=== PATIENT | male | born 1935 | race Caucasian/White ===

== ENCOUNTER → 2023-07-31 10:17 | Outpatient (REF) | payer MEDICARE, OTHER, SELFPAY | LOC: RAD 10:17 | PROVIDERS: ATTENDING PHYSICIAN Family Medicine | DX: R13.10 Dysphagia, unspecified (principal) | CPT/HCPCS: 74230; 92611 ==

== ENCOUNTER 2023-09-14 11:49 | Emergency (ER) | payer MEDICARE, OTHER, SELFPAY ==
[2023-09-14 12:05] VITALS: BP 119/68
[2023-09-14 12:24] LABS: % Basophils 0.2 % (0-2); % Immature Granulocytes 0.4 % (0-0.5); % Lymphocytes 15.5 % (20.5-51.1); % Monocytes 9.6 % (1.7-9.3); % Neutrophils 73.3 % (42.2-75.2); Absolute Eosinophils 0.1 10^3/uL (0-0.7); Absolute Immature Granulocytes 0.1 10^3/uL (0-0.05); Absolute Monocytes 1.2 10^3/uL (0.1-0.6); Absolute Neutrophils 9.2 10^3/uL (1.4-6.5); Hematocrit 41.4 % (39.0-52.0); Hemoglobin 13.6 g/dL (13.0-18.0); Mean Corp Hgb Conc. 32.9 g/dL (33.0-37.0); Mean Corpuscular Hgb 31.7 pg (27.0-31.0); Mean Corpuscular Volume 96.5 fL (80.0-94.0); Mean Platelet Volume 11.3 fL (7.4-10.4); Nucleated Red Blood Cells % 0 % (-); Platelet Count 202 10^3/uL (130-400); Red Blood Cell Count 4.29 10^6/uL (4.70-6.10); Red Cell Dist. Width 14.6 % (11.5-14.5); White Blood Cell Count 12.6 10^3/uL (4.8-10.8)
[2023-09-14 13:28] LABS: ALT (SGPT) 22 U/L (0-50); AST (SGOT) 36 U/L (17-59); Albumin 4.1 g/dl (3.5-5.0); Alkaline Phosphatase 85 U/L (38-126); Blood Urea Nitrogen 24 mg/dl (9-20); Calcium 9.5 mg/dl (8.4-10.2); Carbon Dioxide 22 mmol/L (22-30); Chloride 106 mmol/L (98-107); Glucose 119 mg/dl (70-99); Lipase 44 U/L (23-300); Potassium 4.1 mmol/L (3.5-5.1); Sodium 136 mmol/L (135-145); Total Protein 6.9 g/dl (6.3-8.2); eGFR > 60.00
--- NOTE | 2023-09-14 13:31 | ED.GENMED ---
History of Present Illness
General
Chief Complaint: Dehydration Symptoms
Source: patient and spouse
Exam Limitations: none
Time Seen by Provider: 09/14/23 13:21
Nursing documentation reviewed up to this point in time: agreed with
Travel History
Have you had any contact with someone who has COVID-19?: No
Do you have any symptoms of coronavirus? Fever > 100 degrees, chills, cough, shortness of breath, sore throat, loss of taste or smell, muscle aches, or headache?: No
History of Present Illness
History of Present Illness:
87-year-old male presents emergency department complaining of nausea vomiting and decreased appetite. He also reports loose stools. He denies any abdominal pain. His primary care doctor sent him to the emergency department concern for dehydration.
Past History
Past History
ED Past Medical History: GERD, HTN and Other (Kidney stones)
ED Past Surgical History: Orthopedic and Other (Hernia)
Social History
Tobacco: Non-smoker
Alcohol: Occasional
Drug: None
Personal:
Living: with family
Employment: Retired
Review of Systems
Review of Systems
Allergies reviewed?: Yes
All Other Systems: Not applicable
Constitutional: Reports no symptoms
EENT: Reports no symptoms
Respiratory: Reports no symptoms
Cardiac: Reports no symptoms
ABD/GI: Reports nausea, vomiting and diarrhea
: Reports no symptoms
Musculoskeletal: Reports no symptoms
Skin: Reports no symptoms
Neurological: Reports no symptoms
Endocrine: Reports no symptoms
Hematologic/Lymphatic: Reports no symptoms
Psychiatric: Reports no symptoms
Phy Exam
Physical Exam
Physical Exam:
Physical Exam
General: Afebrile
Neck: supple. no meningeal signs. normal posterior pharynx
Heart: s1/s2 regular rate and rhythm, no murmur. equal radial
pulses.
HEENT: Pupils equal round reactive to light, EOMI
Lungs: no acute respiratory distress. clear bilaterally
Abdomen: normal bowel sounds. not tender. no CVAT, midline and right lower quadrant abdominal scar
Neuro: alert and oriented. no focal neurological deficits cranial nerves II through XII intact
Skin: no rash
Psychiatric: well kept. interactive and cooperative
Extremities: no edema. no calf tenderness. negative homans. good distal pulses
Course
Orders/Labs/Results
Orders:
Orders
09/14/23 12:12
Complete Blood Count/With Diff Urgent
Comprehensive Metabolic Panel Urgent
Lipase Urgent
09/14/23 13:31
IV Insert/Care/Rem.- Treatment PRN
0.9% Sodium Chloride 1000 ml [Nss] 1,000 ml IV BOLUS
09/14/23 14:30
Urinalysis Reflex To Culture Stat
Date Specimen was Collected: 09/14/23
Time Specimen was Collected: 14:29
Urine Microscopic Reflex Cult Stat
Abnormal Lab Results
09/14/23 09/14/23
12:12 14:30
WBC 12.6 H 10^3/uL
(4.8-10.8)
RBC 4.29 L 10^6/uL
(4.70-6.10)
MCV 96.5 H fL
(80.0-94.0)
MCH 31.7 H pg
(27.0-31.0)
MCHC 32.9 L g/dL
(33.0-37.0)
RDW 14.6 H %
(11.5-14.5)
MPV 11.3 H fL
(7.4-10.4)
Abs Immat Gran (auto) 0.1 H 10^3/uL
(0-0.05)
Absolute Neuts (auto) 9.2 H 10^3/uL
(1.4-6.5)
Absolute Monos (auto) 1.2 H 10^3/uL
(0.1-0.6)
Lymphocytes % 15.5 L %
(20.5-51.1)
Monocytes % 9.6 H %
(1.7-9.3)
BUN 24 H mg/dl
(9-20)
Glucose 119 H mg/dl
(70-99)
Ur Occult Blood Reflex 2+ A
(Negative)
Urine RBC 7-10 A /HPF
(0-2)
Urine Bacteria (Reflex) Few A
(Negative)
09/14/23 12:12
09/14/23 12:12
Vital Signs
Initial and Last Documented VS:
Initial Vital Signs
Temp Pulse Resp BP Pulse Ox
98.1 F 71 18 119/68 97
09/14/23 12:05 09/14/23 12:05 09/14/23 12:05 09/14/23 12:05 09/14/23 12:05
Last Documented Vital Signs
Temp Pulse Resp BP Pulse Ox
98.1 F 57 18 119/71 99
09/14/23 12:05 09/14/23 14:28 09/14/23 14:28 09/14/23 14:28 09/14/23 14:28
MDM/Problems Addressed
Differential Diagnosis Includes:
Gastroenteritis, bowel obstruction
MDM/Problems Addressed:
87-year-old male with nausea vomiting diarrhea, benign abdomen. Feels improved after IV fluids.
Chronic conditions affecting care: HTN and Arrhythmia
Acute Exacerbation and/or Progression of Chronic Illness: HTN and Arrhythmia
*Pulse Oximetry
Patient hypoxic: no
*EKG
Interpreted by ED Provider?: NA
*Filteration Operator Interpretation
Rate: Filteration Operator- N/A
*Critical Care Note
Total Time (30-74mins, 75-104mins- exclusive of procedures): Not Applicable
Patient Management
Social determinants of health affecting care: Living situation
Escalation/DeEscalation of care consider admission/obs:
Admit not indicated
ED Attending Note
-
Portions of this chart may have been created with voice recognition software.� Occasional wrong word or��sound alike� substitutions may have occurred due to the inherent limitations of voice recognition software.
Discharge Plan
Departure
Patient Disposition: Home (Routine Discharge)
Date of Disposition: 09/14/23
Time of Disposition: 15:48
Patient with high blood pressure during this ER visit?: No
Condition: Good
Discharge Problem:
Nausea vomiting and diarrhea
Instructions: Diarrhea and Travelers' Diarrhea, Adult (DC), Nausea and Vomiting, Adult (DC)
Prescriptions:
No Action
Xarelto 20 MG tablet
20 mg PO DAILY
metoprolol succinate 25 mg tablet extended release 24 hr
25 mg PO DAILY
oseltamivir 30 mg Capsule
30 mg PO BID 3 Days Qty: 6 0RF
Referrals:
Heber Kowalski MD [Family Provider] - Call in 1-3 days for appt
Interventions
Interventions:
*Risk Screen - Suicide Last Done: 09/14/23 12:05
*General Assessment Last Done: 09/14/23 12:05
*Neglect/Abuse Screening Last Done: 09/14/23 12:05
ED- Fall Risk Assessment Last Done: 09/14/23 15:59
*ED COVID-19 Vaccine History Last Done: 09/14/23 12:05
*Nursing Disposition Last Done: 09/14/23 15:59
ED- Cardiac Assessment Last Done: 09/14/23 14:23
ED- Neurological Assessment Last Done: 09/14/23 14:23
ED- Pulmonary Assessment Last Done: 09/14/23 14:23
Discharge Date and Time
Discharge Date/Time: 09/14/23 16:00
[2023-09-14] MEDS: NSS 1000 IV (13:44)
[2023-09-14 13:45] VITALS: BP 121/69
[2023-09-14 14:28] VITALS: BP 119/71
[2023-09-14 14:39] LABS: Urine Albumin Trace (Neg - Trace); Urine Bilirubin Negative (Negative); Urine Character Clear (Clear); Urine Color Yellow; Urine Glucose Negative (Negative); Urine Ketone Negative (Negative); Urine Leukocyte Negative (Negative); Urine Nitrite Negative (Negative); Urine Occult Blood 2+ (Negative); Urine Urobilinogen Negative (Neg - 1+)
[2023-09-14 14:48] LABS: Urine Mucus Few
[2023-09-14 14:49] LABS: Urine Hyaline Cast 0-2 /LPF (0-2)
[2023-09-14 14:50] LABS: Urine Bacteria Few (Negative); Urine White Cell 0-2 /HPF (0-5)
== END 2023-09-14 16:00 | disposition home or self-care (01) ==
LOC: EMR 11:49
PROVIDERS: Emergency Medicine; EMERGENCY PHYSICIAN Emergency Medicine; FAMILY PHYSICIAN Family Medicine
DX: R11.2 Nausea with vomiting, unspecified (principal); R19.7 Diarrhea, unspecified
CPT/HCPCS: 99284; 96360; 80053; 81003; 81015; 83690; 85025

== ENCOUNTER 2023-12-09 17:22 | Inpatient (IN) | payer MEDICARE, OTHER, SELFPAY ==
[2023-12-09] VITALS (7 sets, daily range): BP systolic 105–131; BP diastolic 55–79; BMI 21.6
[2023-12-09 12:18] LABS: % Basophils 0.2 % (0-2); % Immature Granulocytes 0.5 % (0-0.5); % Lymphocytes 13.3 % (20.5-51.1); % Monocytes 9.2 % (1.7-9.3); % Neutrophils 76.8 % (42.2-75.2); Absolute Immature Granulocytes 0.1 10^3/uL (0-0.05); Absolute Lymphocytes 1.4 10^3/uL (1.2-3.4); Absolute Monocytes 0.9 10^3/uL (0.1-0.6); Absolute Neutrophils 7.8 10^3/uL (1.4-6.5); Hemoglobin 12.7 g/dL (13.0-18.0); Mean Corp Hgb Conc. 34.3 g/dL (33.0-37.0); Mean Corpuscular Hgb 32.1 pg (27.0-31.0); Mean Corpuscular Volume 93.4 fL (80.0-94.0); Mean Platelet Volume 11.6 fL (7.4-10.4); Nucleated Red Blood Cells % 0 % (-); Platelet Count 147 10^3/uL (130-400); Red Blood Cell Count 3.96 10^6/uL (4.70-6.10); Red Cell Dist. Width 14.5 % (11.5-14.5); White Blood Cell Count 10.2 10^3/uL (4.8-10.8)
[2023-12-09 12:30] LABS: ALT (SGPT) 26 U/L (0-50); AST (SGOT) 43 U/L (17-59); Albumin 3.5 g/dl (3.5-5.0); Alkaline Phosphatase 65 U/L (38-126); Blood Urea Nitrogen 25 mg/dl (9-20); Calcium 8.9 mg/dl (8.4-10.2); Carbon Dioxide 29 mmol/L (22-30); Chloride 102 mmol/L (98-107); Glucose 115 mg/dl (70-99); Sodium 138 mmol/L (135-145); Total Bilirubin 0.6 mg/dl (0.2-1.3); Total Protein 6.6 g/dl (6.3-8.2); eGFR > 60.00
[2023-12-09] MEDS: NSS 500 IV (13:18)
[2023-12-09 13:42] LABS: COVID-19 Antigen Positive (Negative)
--- NOTE | 2023-12-09 13:48 | ED.GENMED ---
History of Present Illness
General
Chief Complaint: Dehydration Symptoms
Source: patient and spouse
Exam Limitations: none
Time Seen by Provider: 12/09/23 12:43
Travel History
Have you had any contact with someone who has COVID-19?: Yes
Comment: covid +
Do you have any symptoms of coronavirus? Fever > 100 degrees, chills, cough, shortness of breath, sore throat, loss of taste or smell, muscle aches, or headache?: Yes
Symptoms:: sore throat, covid +
History of Present Illness
History of Present Illness:
88-year-old male started with a rash 3 to 4 days ago. Seen by his primary physician. The next day he started feeling worse they checked him again in his car found to have a positive COVID. Since then has had cough congestion weakness decreased
p.o. intake. Mostly complained of weakness and decreased p.o. intake.
Past History
Past History
ED Past Medical History: Arrthythmia, GERD, HTN and Other (Kidney stones)
ED Past Surgical History: Orthopedic and Other (Hernia)
Social History
Tobacco: Non-smoker
Alcohol: Occasional
Drug: None
Personal:
Living: with family
Employment: Retired
Review of Systems
Review of Systems
All Other Systems: Not applicable
Constitutional: Reports fever and fatigue
Respiratory: Reports cough
Phy Exam
Physical Exam
Physical Exam:
GENERAL: Alert and oriented in no apparent distress generally weak appearing
EYE: Orbits normal.
NECK: Supple
ENT: Pharynx without erythema
cardiac:rrr
Lung: Dry bibasilar rales. No respiratory distress. Occasional coarse cough
ABDOMEN: Soft, without focal tenderness or distention
NEUROLOGICAL: Alert and oriented , grossly non-focal
SKIN: Warm and dry, discrete erythematous maculopapular rash mostly on the chest abdomen and legs. Small area of the arm. No petechia or purpura
MUSCULOSKELETAL: No edema,no deformity.Good color
PSYCH: Normal and appropriate interaction.
Course
Orders/Labs/Results
Orders:
Orders
12/09/23 12:07
CBC/With Diff [Complete Blood Count/With Diff] Urgent
Comprehensive Metabolic Panel Urgent
12/09/23 12:51
CXR Port [CR Chest Portable - 1 View] Urgent
Comment:
Reason For Exam: cough covid
Reason Study Needs to be Portable: Other
12/09/23 12:52
0.9% Sodium Chloride 500 ml [Nss] 500 ml IV BOLUS
12/09/23 13:17
COVID-19 Antigen Urgent
Source: Nasal Swab
Abnormal Lab Results
12/09/23 12/09/23
12:07 13:17
RBC 3.96 L 10^6/uL
(4.70-6.10)
Hgb 12.7 L g/dL
(13.0-18.0)
Hct 37.0 L %
(39.0-52.0)
MCH 32.1 H pg
(27.0-31.0)
MPV 11.6 H fL
(7.4-10.4)
Abs Immat Gran (auto) 0.1 H 10^3/uL
(0-0.05)
Absolute Neuts (auto) 7.8 H 10^3/uL
(1.4-6.5)
Absolute Monos (auto) 0.9 H 10^3/uL
(0.1-0.6)
Neutrophils % 76.8 H %
(42.2-75.2)
Lymphocytes % 13.3 L %
(20.5-51.1)
BUN 25 H mg/dl
(9-20)
Glucose 115 H mg/dl
(70-99)
SARS-CoV-2 Antigen Positive A
(Negative)
12/09/23 12:07
12/09/23 12:07
Vital Signs
Initial and Last Documented VS:
Initial Vital Signs
Temp Pulse Resp BP Pulse Ox
98.3 F 69 16 105/55 95
12/09/23 11:56 12/09/23 11:56 12/09/23 11:56 12/09/23 11:56 12/09/23 11:56
Last Documented Vital Signs
Temp Pulse Resp BP Pulse Ox
98.3 F 62 16 131/75 95
12/09/23 11:56 12/09/23 14:02 12/09/23 14:02 12/09/23 15:15 12/09/23 14:02
MDM/Problems Addressed
Differential Diagnosis Includes:
General weakness fatigue. Likely all related to COVID. Unsure how the rash relates to this. Highly doubt pulmonary emboli. Patient is anticoagulated. Workup in progress
*Radiology
Radiology exam reviewed: radiology read reviewed (Bibasilar infiltrate)
*Pulse Oximetry
Patient hypoxic: no
*Critical Care Note
Total Time (30-74mins, 75-104mins- exclusive of procedures): Not Applicable
Data Reviewed
Review of Other/Old Records Reveals: Labs, Records, Testing and Discharge Summary
ED Attending Note
-
Portions of this chart may have been created with voice recognition software.� Occasional wrong word or��sound alike� substitutions may have occurred due to the inherent limitations of voice recognition software.
Discharge Plan
Departure
Patient Disposition: Admit
Date of Disposition: 12/09/23
Time of Disposition: 14:48
Presentation/result/management discussed w/ accepting MD/DO: Hospitalist
Discharge Problem:
Weakness/dehydration, COVID, Bibasilar infiltrate
Prescriptions:
No Action
Xarelto 20 MG tablet
20 mg PO DAILY
metoprolol succinate 25 mg tablet extended release 24 hr
25 mg PO DAILY
acetaminophen [Tylenol] 325 mg Tablet
650 mg PO BIDPRN PRN (Reason: mild pain)
trazodone 50 mg Tablet
50 mg PO HS PRN (Reason: sleep)
ascorbic acid (vitamin C) [Vitamin C] 500 mg Tablet
500 mg PO DAILY
Patient Comments:
12/09/2023, [facility].
Lagevrio (EUA) 200 mg capsule
800 mg PO Q12H
Patient Comments:
12/09/2023, filled on 12/08/2023 and instructed to take 4 capsules Q12H for 5 days.
cholecalciferol (vitamin D3)
1 tab PO DAILY
Patient Comments:
12/09/2023, [facility]; spouse believes that pt. is taking '200 mg' but is unsure of the dose for certain.
cyanocobalamin (vitamin B-12)
1 tab PO DAILY
Patient Comments:
12/09/2023, [facility].
zinc
1 tab PO DAILY
Patient Comments:
12/09/2023, [facility].
Referrals:
Heber Kowalski MD [Family Provider] -
Interventions
Interventions:
*Risk Screen - Suicide Last Done: 12/09/23 11:56
*General Assessment Last Done: 12/09/23 11:56
*Neglect/Abuse Screening Last Done: 12/09/23 11:56
ED- Fall Risk Assessment Last Done: 12/09/23 12:20
*ED COVID-19 Vaccine History Last Done: 12/09/23 12:22
ED- Cardiac Assessment Last Done: 12/09/23 12:20
ED- Neurological Assessment Last Done: 12/09/23 12:20
ED- Pulmonary Assessment Last Done: 12/09/23 12:20
Discharge Date and Time
Print Language: BELGIAN
--- NOTE | 2023-12-09 16:33 | HPS.HSE ---
Family Physician
-
Family Physician: Heber Kowalski
Chief Complaint
-
Sore throat and fatigue
History of Present Illness
88-year-old man had a rash 4 days ago. The next day he started feeling worse, and he was found to be positive COVID. Since then, he has had cough, congestion, weakness, decreased p.o. intake. He is very confused and cannot contribute to his
history. His initially asked for ivermectin and hydroxychloroquine. She was very adamant against antiviral medication such as rimdesivir. Her daughter (on speaker phone) advised her mother to accept appropriate therapy. He had been started
on molnupiravir as an outpatient. Later, after I left the room, the told the nurse she only wanted him to receive fluids and steroids. I came back to the room and explained that if the patient's condition became worse, an antiviral such as
rimdesivir would be useful. then re-agreed to allow him to receive whatever appropriate therapy we recommend. Throughout all this patient was confused and not able to follow the conversation.
Medical History
Past Medical History
Past Medical History: Reports Other
Additional Past Medical History:
Arrthythmia,
GERD,
essential HTN
Kidney stones
Hernia
vascular dementia
Metabolic encephalopathy
COPD
Influenza A
Past Surgical History: Reports Other
Additional Past Surgical History:
See above
Social History
Unable to obtain full social history at this time due to: Dementia
Family History
Family History: Not pertinent
Allergies / Home Medications
Allergies reflects when Allergies were last updated in [facility].
Home Medications with original date entered in [facility]
Allergy/Medication List:
Allergies
Allergy/AdvReac Type Severity Reaction Status Date / Time
lisinopril Allergy Rash Verified 09/14/23 14:23
omeprazole Allergy Rash Verified 09/14/23 14:23
Home Medications
rivaroxaban 20 mg tablet (Xarelto) 20 mg PO DAILY atrial fibrillation 12/24/20
metoprolol succinate 25 mg tablet,extended release 24 hr 25 mg PO DAILY Blood Pressure 05/29/23
acetaminophen 325 mg tablet (Tylenol) 650 mg PO BIDPRN PRN mild pain 12/09/23
ascorbic acid (vitamin C) 500 mg tablet (Vitamin C) 500 mg PO DAILY 12/09/23
cholecalciferol (vitamin D3) 1 tab PO DAILY 12/09/23
cyanocobalamin (vitamin B-12) 1 tab PO DAILY 12/09/23
molnupiravir 200 mg capsule (EUA) (Lagevrio) 800 mg PO Q12H 12/09/23
trazodone 50 mg tablet 50 mg PO HS PRN sleep 12/09/23
zinc 1 tab PO DAILY 12/09/23
Review of Systems
-
Unable to obtain full review of systems at this time due to: Dementia
Physical Exam
Vital Signs
Vital Signs
Temp Pulse Resp BP Pulse Ox
98.3 F 62 16 131/75 95
12/09/23 11:56 12/09/23 14:02 12/09/23 14:02 12/09/23 15:15 12/09/23 14:02
Physical Exam
General: Well Developed, Well Nourished and No Apparent Distress
HEENT: No Ptosis, Nose Appears Normal and Ears Appear Normal
Respiratory: Clear and Decreased Breath Sounds
Cardiac: S1/S2 and Regular Rhythm
GI: Soft, Non Tender and Non Distended
Musculoskeletal: No Clubbing, No Cyanosis and No Edema
Skin: Warm and Dry
Neuro: Awake and Alert; No Oriented or AO x 3
Psych: Calm and Confused
Laboratory Results
-
12/09/23 12:07
12/09/23 12:07
Laboratory Results
Total Bilirubin 0.6 mg/dl (0.2-1.3) 12/09/23 12:07
AST 43 U/L (17-59) 12/09/23 12:07
ALT 26 U/L (0-50) 12/09/23 12:07
Alkaline Phosphatase 65 U/L (38-126) 12/09/23 12:07
Data Reviewed
-
Lab Data: Labs Reviewed by me
Impression/Plan
-
IMPRESSION:
88 man with bilateral covid positive pneumonia, and dehydration.
CXR shows:
Minor bibasilar infiltrates.
No focal dense consolidation.
The mid to upper lung zones are clear.
Mild cardiomegaly without vascular congestion or congestive heart failure.
No pneumothorax or pleural effusion.
O2 Sats 95%
BP 131/75
Pulse 62
BUN/Creat 25/1.0
PLAN:
1. Covid pos, bilateral PNA, 4 days of symptoms
At time of admit, will start
Steroids
IV fluids
Will continue meds prescribed by PCP that he is already taking
Pulmonary consult to eval and recommend further therapy as needed
2. Dehydration, BUN/Creat >20
IV fluids
Recheck in am
Code status - Patient does not have capacity to make this decision
I am not sure has such capacity
Will order full code for now, will attempt to reach daughter for help with this question.
Xarelto for DVTp
[2023-12-09 19:05] LABS: D-Dimer 0.44 ug/mlFEU (0.00-0.50)
[2023-12-09] MEDS: NSS 1000 IV (19:30)
[2023-12-09] MEDS: DECADRON 6 MG IV (19:31)
[2023-12-09] MEDS: MUCINEX 600 MG PO (19:31)
[2023-12-09 19:33] LABS: Procalcitonin 1.71 ng/ml (0.0-0.25)
[2023-12-09] MEDS: MOLNUPIRAVIR (EUA) 800 MG PO (20:24)
[2023-12-09] MEDS: DESYREL 50 MG PO (22:03)
[2023-12-10] MEDS: NSS 1000 IV ×2 (00:22→05:19)
[2023-12-10 06:52] LABS: % Immature Granulocytes 0.5 % (0-0.5); % Lymphocytes 10.8 % (20.5-51.1); % Monocytes 2.2 % (1.7-9.3); % Neutrophils 86.5 % (42.2-75.2); Absolute Lymphocytes 0.7 10^3/uL (1.2-3.4); Absolute Monocytes 0.1 10^3/uL (0.1-0.6); Absolute Neutrophils 5.2 10^3/uL (1.4-6.5); Hematocrit 36.3 % (39.0-52.0); Hemoglobin 12.2 g/dL (13.0-18.0); Mean Corp Hgb Conc. 33.6 g/dL (33.0-37.0); Mean Corpuscular Hgb 31.8 pg (27.0-31.0); Mean Corpuscular Volume 94.5 fL (80.0-94.0); Mean Platelet Volume 12.1 fL (7.4-10.4); Nucleated Red Blood Cells % 0 % (-); Platelet Count 123 10^3/uL (130-400); Red Blood Cell Count 3.84 10^6/uL (4.70-6.10); Red Cell Dist. Width 14.5 % (11.5-14.5)
[2023-12-10 07:30] LABS: Blood Urea Nitrogen 25 mg/dl (9-20); Calcium 8.6 mg/dl (8.4-10.2); Carbon Dioxide 21 mmol/L (22-30); Chloride 109 mmol/L (98-107); Estimated Creatinine Clearance 77 ml/min; Glucose 120 mg/dl (70-99); Potassium 4.5 mmol/L (3.5-5.1); Sodium 140 mmol/L (135-145); eGFR > 60.00
[2023-12-10 07:50] VITALS: BP 117/74
[2023-12-10] MEDS: MOLNUPIRAVIR (EUA) 800 MG PO ×2 (08:26→19:54)
[2023-12-10] MEDS: ZINC SULFATE 220 MG PO (08:26)
[2023-12-10] MEDS: TOPROL XL 25 MG PO (08:26)
[2023-12-10] MEDS: VITAMIN B-12 100 MCG PO (08:26)
[2023-12-10] MEDS: MUCINEX 600 MG PO ×2 (08:26→19:54)
[2023-12-10] MEDS: XARELTO 20 MG PO (08:27)
[2023-12-10] MEDS: VITAMIN D3 (cholecalciferol) 50 MCG PO (08:27)
[2023-12-10] MEDS: DECADRON 6 MG IV (08:27)
[2023-12-10] MEDS: VITAMIN C 500 MG PO (08:27)
[2023-12-10] MEDS: NSS IV (10:09)
--- NOTE | 2023-12-10 11:37 | CM ---
Reviewed the chart notes and spoke with the patient's spouse via telephone due to the patient's Covid + status. The patient resides with his spouse in a multi-level home with four steps to enter. The patient has had [facility] in the past, but no SNF.
The patient's discharge plans will depend on the patient's progress. PT/OT evaluations pending. CM continues to be available to patient/family and is monitoring medical plan for needs at discharge.
Plan: Discharge plans will depend on the patient's progress.
--- NOTE | 2023-12-10 12:16 | W.PN.HOSP.TC ---
Today's Communication/Plan
-
stop Decadron
PT and ST eval
possible d/c in 24 hrs
Assessment / Plan
Assessment / Plan
1.COVID 19 Viral Pneumonia
-Patient brought in for cough/generalized weakness
-Not hypoxic on evaluation, continue monitor
-Chest x-ray showing minimal bilateral lower lobe infiltrate
-Patient already was prescribed Lagevrio by PCP, finish 5 days course
-Dexamethasone started but no true indication, discontinue.
-PT evaluation
2. Dysphagia
-ST evaluation
-Has h/o of polio as a kid, suspected some worsening with COVID related pharyngitis/swelling
-Discussed with daughter and wondering if can give some meds as liquid, will await ST eval for further understanding of severity of symptoms
3. Permanent A-fib
-HR controlled.
-Maintained on Xarelto
4. Alzheimer's dementia
-Patient symptoms have been manageable with nighttime trazodone per outpatient visit records
-patient pleasantly disoriented in morning today. no reported behavioral problems
Hyperlipidemia
Hypertension
History of alcohol use disorder
History of obstructive uropathy/hydronephrosis
History of polio infection at age 11
DVT PPX - xarelto
Full code
Care plan discussed with patient daughter Teresa who is medical power of agency sales representative and not mother.
Teresa was concerned about patient not being on remdesivir as was informed by admitting physician that patient is in life-threatening COVID and will require remdesivir course. I have reassured Teresa that patient currently does not show any sign of
severe COVID and there is no indication for remdesivir at this stage as patient not hypoxic. Plan is to continue molnupiravir and monitor patient for any further worsening.
Daughter also questioning if needs repeat chest x-ray and clarified that likely will not show changes in x-ray within 48 hours. If patient clinical condition deteriorates with worsening hypoxia/dyspnea can do repeat xray.
Anticipated Discharge: Within 24 hours
Subjective/Interval History
-
Date of Service: December 10, 2023
Resting comfortably in bed
Have some cough with thick secretion
Afebrile overnight
Not hypoxic
Objective Data
-
Labs:
Laboratory Results
12/10/23
05:52
WBC 6.0
Hgb 12.2 L
Hct 36.3 L
Plt Count 123 L
Sodium 140
Potassium 4.5
Chloride 109 H
Carbon Dioxide 21 L
BUN 25 H
Creatinine 0.7
Glucose 120 H
Calcium 8.6
Vital Signs:
Vital Signs
Temp Pulse Resp BP Pulse Ox
97.1 F 60 20 117/74 97
12/10/23 07:50 12/10/23 08:26 12/10/23 07:50 12/10/23 08:26 12/10/23 07:50
I&O
12/09/23 12/10/23 12/11/23
06:59 06:59 06:59
Intake Total 480 / 480 880 / 880
Balance 480 / 480 880 / 880
Review of Systems
-
Respiratory: Reports Cough; Denies Trouble Breathing
Cardiac: Reports No Symptoms
Abdomen/GI: Reports No Symptoms
Physical Exam
-
General: Comfortable
HEENT: Negative Oxygen
Respiratory: Rhonchi
Cardiac: Regular Rhythm and S1/S2; Negative Murmur or Rub
GI: Soft, Nontender and Nondistended
Musculoskeletal: No Edema
Neuro: Awake, Alert, No Motor Deficits and Nonfocal/Grossly Intact
Psych: Calm
--- NOTE | 2023-12-10 13:33 | CON.PUL ---
Consultation
Consultation Request
Date/Time Consultation Requested: 12/10/2023
Date/Time Consultation Performed: 12/10/2023
Requesting Provider: Dr. Camargo
Performing Provider: Dr. Lino Connor
Reason for Consultation: Pneumonia-SARS cov2
Medical History
-
History of Present Illness:
88-year-old man who has past medical history significant for hypertension, vascular dementia, COPD, influenza A reports a rash prior to coming to the hospital. Patient did not feel well and he was discovered to have COVID testing positive.
Symptoms started about 4 days prior to admission. Now with cough, congestion, weakness, decreased oral intake. He has dementia and unable to provide history.
Records reviewed.
Patient is confused. declined any antivirals or remdesivir.
was asking for hydroxychloroquine or ivermectin only.
Patient was started on Paxlovid in the outpatient setting.
Past Medical History
Past Medical History: Other (See assessment and plan section)
Social History
Tobacco: Non-smoker
Alcohol: None
Family History
Family History: Unable to Obtain (Dementia)
Allergies / Home Medications
Allergies
Allergy/AdvReac Type Severity Reaction Status Date / Time
lisinopril Allergy Rash Verified 09/14/23 14:23
omeprazole Allergy Rash Verified 09/14/23 14:23
Home Medications
�Medication �Instructions �Recorded �Confirmed �Last Taken �Type
rivaroxaban 20 mg tablet (Xarelto) 20 mg PO DAILY Blood Clot 12/24/20 12/09/23 12/08/23 History
Prevention/Tx
metoprolol succinate 25 mg 25 mg PO DAILY Blood Pressure 05/29/23 12/09/23 12/08/23 History
tablet,extended release 24 hr
acetaminophen 325 mg tablet 650 mg PO BIDPRN PRN mild pain 12/09/23 12/09/23 12/09/23 History
(Tylenol)
ascorbic acid (vitamin C) 500 mg 500 mg PO DAILY Supplement 12/09/23 12/09/23 3 Days Ago History
tablet (Vitamin C) ~12/06/23
cholecalciferol (vitamin D3) 1 tab PO DAILY Supplement 12/09/23 12/09/23 3 Days Ago History
~12/06/23
cyanocobalamin (vitamin B-12) 1 tab PO DAILY Supplement 12/09/23 12/09/23 3 Days Ago History
~12/06/23
molnupiravir 200 mg capsule (EUA) 800 mg PO Q12H COVID 12/09/23 12/09/23 12/09/23 History
(Lagevrio)
trazodone 50 mg tablet 50 mg PO HS PRN sleep 12/09/23 12/09/23 1 Week Ago History
~12/02/23
zinc 1 tab PO DAILY Supplement 12/09/23 12/09/23 3 Days Ago History
~12/06/23
Review of Systems
-
Unable to Obtain full review of systems at this time due to: Dementia
Vitals / Labs / Diagnostic Testing
Vital Signs
Temp Pulse Resp BP Pulse Ox
97.1 F 60 20 117/74 97
12/10/23 07:50 12/10/23 08:26 12/10/23 07:50 12/10/23 08:26 12/10/23 07:50
Lab Data
12/10/23 05:52
12/10/23 05:52
Diagnostic Testing:
Physical Exam
-
HEENT: Normocephalic
Cardiovascular: S1/S2 and Regular Rhythm
Respiratory: Rales
GI: Soft and Non Distended
Neurology: Awake and Other (Confused, unable to provide history. Baseline dementia)
Skin: Warm
General: Comfortable
Assessment
-
Bilateral pneumonia: Chest x-ray with a small bibasilar infiltrate
SARS Cov 2
Symptoms onset 4 days prior admission
Started on Paxlovid 1 days prior admission
Conditions present prior admission:
Advanced dementia
GERD
Hypertension
Kidney stone
COPD?
Influenza A
On chronic anticoagulant
Assessment and plan:
Patient currently on room air-Main symptoms are cough and generalized weakness.
Initially received steroids-given lack of hypoxemia or bronchospasm not indicated. May increase risk of delirium in this patient-agree with discontinuation.
Continue Paxlovid 5 days, unclear how many days he received prior admission.
declined any other antivirals on admission. Supportive care only.
No indication for antibiotics as there is no signs for superinfection.
-
Continue symptomatic management
Antitussives
Mucolytic's
IV hydration
Albuterol MDI-likely patient will be able to provide adequate maneuver.
DVT prophylaxis-patient on anticoagulation already.
-
Isolation per protocol. Patient is at least day 5 of infection.
-
Aspiration precaution
Swallowing evaluation
-
Pulmonary will continue to follow briefly.
[2023-12-10 15:25] VITALS: BP 128/83; BP 137/83; PULSE 58; O2SAT 98
[2023-12-10 15:32] VITALS: BP 128/83; BP 137/83; PULSE 65; O2SAT 98
--- NOTE | 2023-12-10 15:37 | PTCARENOTE ---
pt continues on covid precautions, medsitter in place due to confusion and hx of dementia, daughter came to visit, speech eval on going.
[2023-12-10 15:45] VITALS: BP 115/65
--- NOTE | 2023-12-10 17:18 | PTOTSP ---
SPEECH THERAPY SWALLOW EVALUATION:
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 Patient has had 3 prior Outpatient VSEs, most recently 08/04/23. Patient now
with minor bibasilar infiltrates per CXR. WBC WNL. Patient reporting his swallow feels at baseline level of functioning, though unclear. Given stable respiratory status at this time (breathing comfortably on room air), patient appears safe to
continue previous diet recommendations from VSE results in 07/2023: Recommending IDDSI Level 6 Soft and Bite Size and thin liquids. Medications whole in puree. Aspiration precautions including: Upright positioning; Small single sips; Small bites; NO
STRAW; Oral care 3x/day; Multiple swallows; Cough re-swallow; Supervision to ensure use of strategies; Remain upright 30 minutes after eating/drinking; Overchew solids; Monitor CXR and labs; D/C oral diet and make NPO if any signs of aspiration or a
decline in mental or respiratory status. Patient educated on diet recommendations and aspiration risks/precautions. Patient reported he refuses diet modification despite risks for aspiration and related complications. Daughter was not present for
discussion of VSE results at end of session. Defer to MD at this time for diet recommendation. Speech therapy to follow at the acute care level to assess diet tolerance and modify as appropriate, provide continued education regarding aspiration
risks/precautions, determine indication for repeat VSE, and provide continued diagnostic swallow therapy as appropriate. Discussed with RN and Dr. Camargo.
RECOMMEND:
1) IDDSI Level 6 Soft and Bite Size Diet (safest) vs. Regular diet (pt prefernce) at MD discretion; Thin liquids
2) Medications whole in puree
3) Aspiration precautions: Upright positioning; Small single sips; Small bites; NO STRAW; Oral care 3x/day; Multiple swallows; Cough re-swallow; Supervision to ensure use of strategies; Remain upright 30 minutes after eating/drinking; Overchew
solids; Monitor CXR and labs; D/C oral diet and make NPO if any signs of aspiration or a decline in mental or respiratory status
4) Speech therapy to follow
[2023-12-10] MEDS: DESYREL 50 MG PO (19:54)
[2023-12-10 20:03] VITALS: BMI 21.6
[2023-12-10 23:00] VITALS: BP 150/60
[2023-12-11 06:09] LABS: Hematocrit 37.2 % (39.0-52.0); Hemoglobin 12.8 g/dL (13.0-18.0); Mean Corp Hgb Conc. 34.4 g/dL (33.0-37.0); Mean Corpuscular Hgb 32.2 pg (27.0-31.0); Mean Corpuscular Volume 93.5 fL (80.0-94.0); Mean Platelet Volume 12.1 fL (7.4-10.4); Platelet Count 125 10^3/uL (130-400); Red Blood Cell Count 3.98 10^6/uL (4.70-6.10); Red Cell Dist. Width 13.9 % (11.5-14.5); White Blood Cell Count 7.8 10^3/uL (4.8-10.8)
[2023-12-11 06:31] LABS: Blood Urea Nitrogen 29 mg/dl (9-20); Carbon Dioxide 18 mmol/L (22-30); Chloride 108 mmol/L (98-107); Estimated Creatinine Clearance 77 ml/min; Glucose 152 mg/dl (70-99); Potassium 4.7 mmol/L (3.5-5.1); Sodium 136 mmol/L (135-145); eGFR > 60.00
[2023-12-11 07:45] VITALS: BP 109/70
[2023-12-11 08:08] VITALS: BP 109/70
--- NOTE | 2023-12-11 08:55 | W.PN.HOSP.TC ---
Today's Communication/Plan
-
Discharge today
Assessment / Plan
Assessment / Plan
Physical Exam
General: Comfortable
HEENT: Negative Oxygen
Respiratory: Rhonchi
Cardiac: Regular Rhythm and S1/S2; Negative Murmur or Rub
GI: Soft, Nontender and Nondistended
Musculoskeletal: No Edema
Neuro: Awake, Alert, No Motor Deficits and Nonfocal/Grossly Intact
Psych: Calm
Assessment/Plan
1.COVID 19 Viral Pneumonia
-Patient brought in for cough/generalized weakness
-Not hypoxic on evaluation, continue monitor
-Chest x-ray showed minimal bilateral lower lobe infiltrate
-Patient already was prescribed Lagevrio by PCP, finish 5 days course
-Dexamethasone started but no true indication, discontinue.
-PT evaluation
2. Dysphagia
-ST evaluation
-Has h/o of polio as a kid, suspected some worsening with COVID related pharyngitis/swelling
-Dr. Camargo discussed with patient's daughter and wondering if can give some meds as liquid, will await [facility] for further understanding of severity of symptoms
3. Permanent A-fib
-HR controlled.
-Maintained on Xarelto
4. Alzheimer's dementia
-Patient symptoms have been manageable with nighttime trazodone per outpatient visit records
-patient pleasantly disoriented in morning today. no reported behavioral problems
Hyperlipidemia
Hypertension
History of alcohol use disorder
History of obstructive uropathy/hydronephrosis
History of polio infection at age 11
DVT PPX - xarelto
Full code
Dr. Camargo discussed care plan discussed with patient'cindyHilton who is medical power of prosecuting attorney and not mother.
Teresa was concerned about patient not being on remdesivir as was informed by admitting physician that patient is in life-threatening COVID and will require remdesivir course. Dr. Camargo reassured Teresa that patient currently does not show any sign
of severe COVID and there is no indication for remdesivir at this stage as patient not hypoxic. Plan is to continue molnupiravir and monitor patient for any further worsening.
Daughter also questioning if patient needed repeat chest x-ray and clarified that likely will not show changes in x-ray within 48 hours. If patient clinical condition deteriorates with worsening hypoxia/dyspnea can do repeat xray.
More than 30 minutes spent in discharge including
Final examination of the patient
Summarizing hospital stay
Instructions for continuing care to all relevant caregivers
Preparation of discharge records, prescriptions, and referral forms
Total time spent (in minutes): 38
Anticipated Discharge: Today
Subjective/Interval History
-
Date of Service: December 11, 2023
Patient was seen and examined. He was somewhat agitated today, walking around his room and trying to come outside his room as well. He denied any new symptoms or complaints.
Objective Data
-
Labs:
Laboratory Results
12/11/23
05:38
WBC 7.8
Hgb 12.8 L
Hct 37.2 L
Plt Count 125 L
Sodium 136
Potassium 4.7
Chloride 108 H
Carbon Dioxide 18 L
BUN 29 H
Creatinine 0.7
Glucose 152 H
Calcium 9.0
Vital Signs:
Vital Signs
Temp Pulse Resp BP Pulse Ox
97.4 F 68 18 109/70 98
12/11/23 07:45 12/11/23 07:45 12/11/23 07:45 12/11/23 07:45 12/11/23 07:45
I&O
12/10/23 12/11/23 12/12/23
06:59 06:59 06:59
Intake Total 480 / 480 3040 / 3040
Balance 480 / 480 3040 / 3040
[2023-12-11] MEDS: MOLNUPIRAVIR (EUA) 800 MG PO (09:13)
[2023-12-11] MEDS: TOPROL XL 25 MG PO (09:13)
[2023-12-11] MEDS: MUCINEX 600 MG PO (09:13)
[2023-12-11] MEDS: VITAMIN B-12 100 MCG PO (09:14)
[2023-12-11] MEDS: XARELTO 20 MG PO (09:14)
[2023-12-11] MEDS: VITAMIN C 500 MG PO (09:14)
[2023-12-11] MEDS: VITAMIN D3 (cholecalciferol) 50 MCG PO (09:14)
[2023-12-11] MEDS: ZINC SULFATE 220 MG PO (09:14)
--- NOTE | 2023-12-11 10:28 | PTCARENOTE ---
spoke with patients and updated about care. Patient is possible d/c today. said daughter mason will be able to transport after 1500 today.
--- NOTE | 2023-12-11 11:20 | W.PN.PUL3 ---
Today's Communication / Plan
-
Finish 5-day course of molnupiravir
Up OOB as tolerated
As needed albuterol
Patient continuing to do well - patient is being prepared for discharge today. Pulmonary service will now sign off. Please reconsult if there are any additional questions/concerns, or if patient's respiratory status deteriorates.
Assessment
-
Bilateral pneumonia: Chest x-ray with a small bibasilar infiltrate
SARS Cov 2
Symptoms onset 4 days prior admission
Started on molnupiravir 1 day prior admission
Conditions present prior admission:
Advanced dementia
GERD
Hypertension
Kidney stone
COPD?
Influenza A
On chronic anticoagulant
Assessment and plan:
Patient continues to be on room air-Main symptoms are cough and generalized weakness.
Initially received steroids w/ Decadron 6mg IV daily from 12/08 - 12/09 - stopped given lack of hypoxemia or bronchospasm. Steroids may also increase risk of delirium in this patient-agree with discontinuation.
Continue molnupiravir x 5 days
declined any other antivirals on admission. Supportive care only.
No indication for antibiotics as there is no signs for superinfection.
-
Continue symptomatic management
Antitussives
Mucolytics
IV hydration
Albuterol MDI prn
DVT prophylaxis-patient on anticoagulation already with Xarelto
-
Isolation per protocol. Patient is at least day 5 of infection.
-
Aspiration precautions
Swallowing evaluation
-
Patient continuing to do well - patient is being prepared for discharge today. Pulmonary service will now sign off. Thank you for allowing us to be involved in the care of this patient. Please reconsult if there are any additional
questions/concerns, or if patient's respiratory status deteriorates.
Total time spent today was 35 minutes for this encounter. Time includes reviewing laboratory test/imaging results, reviewing pertinent medical records, obtaining and reviewing medical history, performing an appropriate exam, ordering medications,
tests and procedures. Time also includes documentation of this encounter, coordinating patient care and communicating with other healthcare professionals. Total time does not include separately billed tests performed on this date of service.
Subjective Data
-
Date of Service:
Date of Service: December 11, 2023
Chief Complaint: Pulmonary Follow Up
Subjective:
Patient seen and evaluated today at bedside. Been prepared for discharge home today. Slightly annoyed today, eager to go home though. No chest pain, shortness of breath, fevers or chills reported.
Review of Systems
General: Other (Negative unless mentioned above)
Objective Data
Data Reviewed
Vital Signs / I&O / Oxygen:
Vital Signs
Temp Pulse Resp BP Pulse Ox
97.4 F 68 18 109/70 98
12/11/23 07:45 12/11/23 07:45 12/11/23 07:45 12/11/23 07:45 12/11/23 07:45
Intake and Output
12/10/23 12/11/23 12/12/23
06:59 06:59 06:59
Intake Total 480 / 480 3040 / 3040
Balance 480 / 480 3040 / 3040
SaO2 98
Physical Exam
General: Respiratory Distress (Negative), Comfortable and Other (Confused)
HEENT: Normocephalic and Anicteric
Cardiovascular: S1-S2 and Peripheral Edema (Negative)
Respiratory: Wheeze (Negative), Crackles and Rhonchi (Negative)
GI: Soft, Non Distended, Non Tender and Normal Bowel Sounds
Neurology: Awake and Alert
Skin: Warm and Dry
Labs/Micro/Reports
Lab Data
12/11/23 05:38
12/11/23 05:38
--- NOTE | 2023-12-11 13:50 | W.DS.TRANS ---
DC Summary - Elementary Instructional Coach
-
Discharge Instructions:
Discharge Diagnosis/Procedures #COVID 19 Viral Pneumonia
#Dysphagia
#Permanent Atrial Fibrillation
#Alzheimer's dementia
#Hyperlipidemia
#Hypertension
#History of alcohol use disorder
#History of obstructive uropathy/hydronephrosis
#History of polio infection at age 11
Diet Other diet
Additional Diets IDDSI Level 6 Soft and Bite Size Diet (safest)
with thin liquids (as per speech therapist
recommendations)
Activity As tolerated
Driving Restrictions No driving
Blood Work Recheck CBC, CMP, Magnesium with your primary
care provider in 1 to 2 days with your primary
care provider's office.
Other Services [facility]
Instructions:
Stand-Alone Forms:
Changes to Home Medications: Yes
Discharge Medications:
DC Medications w/original date entered in [email or web address]
rivaroxaban 20 mg tablet (Xarelto) 20 mg PO DAILY Blood Clot Prevention/Tx 12/24/20
metoprolol succinate 25 mg tablet,extended release 24 hr 25 mg PO DAILY Blood Pressure 05/29/23
acetaminophen 325 mg tablet (Tylenol) 650 mg PO BIDPRN PRN mild pain 12/09/23
ascorbic acid (vitamin C) 500 mg tablet (Vitamin C) 500 mg PO DAILY Supplement 12/09/23
cholecalciferol (vitamin D3) 1 tab PO DAILY Supplement 12/09/23
cyanocobalamin (vitamin B-12) 1 tab PO DAILY Supplement 12/09/23
molnupiravir 200 mg capsule (EUA) (Lagevrio) 800 mg PO Q12H COVID 12/09/23
trazodone 50 mg tablet 50 mg PO HS PRN sleep 12/09/23
zinc 1 tab PO DAILY Supplement 12/09/23
guaifenesin 600 mg tablet, extended release 12 hr 600 mg PO Q12 #10 tabs 12/11/23
Home Medication Changes
Guaifenesin is a new medication.
Pending Results: No
Total time spent discharging patient (in min): 38
--- NOTE | 2023-12-11 14:23 | CM ---
Patient has been medically cleared for discharge to home with [facility], PT/OT services. Daughter will transport home.
--- NOTE | 2023-12-11 14:25 | VNURNOTE ---
Home Health Liaison spoke with patient's Jasmine by phone at 1415 to discuss [facility] nurse/therapy, visits, schedule and homebound status. Jasmine is agreeable and understands that visits at home will be 2-3 x per week to assess and teach medical
management.
Jasmine is aware that [facility] will contact them for start of care in 1-2 days after discharge from .
[facility] referral completed previously and accepted in [facility].
--- NOTE | 2023-12-11 14:30 | PTCARENOTE ---
Messaged doctor Darrell about calling daughter katy per 's request to update her on patient. Also spoke with over the phone and went over d/c paperwork. Informed that I would also go over the paperwork with their daughter Pat who
is coming to pick patient up and if there are any questions I am here until 1900.
[2023-12-11 15:04] VITALS: BP 151/86
--- NOTE | 2023-12-11 15:44 | PTCARENOTE ---
Patient no longer being d/c today .
--- NOTE | 2023-12-11 16:31 | PTCARENOTE ---
Pt now being d/c home with vn to draw bloodwork tomorrow. script sent with patients daughter. Iv removed, d/c paperwork reviewed with daughter and (via phone).
--- NOTE | 2023-12-14 10:02 | W.DCSUMMARY ---
Discharge Summary
Discharge Data
Date of Admission: 12/09/23
Date of Discharge: 12/11/23
Total time spent discharging patient (in min): 38
-
Pending Results: No
Hospital Course
88 y/o male with past medical history significant for hypertension, vascular dementia, COPD and influenza A was admitted with COVID pneumonia, and reported a rash prior to coming to the Hospital. Patient was experiencing cough, congestion, weakness
and decreased oral intake for 4 days prior to hospitalization. Patient had already been taking Molnupiravir prior to being admitted. He was not hypoxic or bronchospastic therefore steroids were discontinued. Patient had lowering bicarb levels, and
was discharged with expected close follow-up with repeat labwork later in the same week with review of results by PCP.
Discharge Plan
-
Patient Disposition: Home with Home Care
Discharge Diagnosis/Procedures: #COVID 19 Viral Pneumonia
#Dysphagia
#Permanent Atrial Fibrillation
#Alzheimer's dementia
#Hyperlipidemia
#Hypertension
#History of alcohol use disorder
#History of obstructive uropathy/hydronephrosis
#History of polio infection at age 11
Condition: Fair
Diet: Other diet
Additional Diets: IDDSI Level 6 Soft and Bite Size Diet (safest) with thin liquids (as per speech therapist recommendations)
Activity: As tolerated
Driving Restrictions: No driving
Blood Work: Recheck CBC, CMP, Magnesium with your [facility] home care service/primary care provider in 1 to 2 days and have primary care review it within 24 hours of being drawn
Other Services: [facility]
Activity Restrictions/Additional Instructions:
IDDSI Level 6 Soft and Bite Size Diet (safest) with thin liquids (as per speech therapist recommendations)
Medications whole in puree
Aspiration precautions - Upright positioning; Small single sips; Small bites; NO STRAW; Oral care 3x/day; Multiple swallows; Cough re-swallow; Supervision to ensure use of strategies; Remain upright 30 minutes after eating/drinking; Overchew solids;
Monitor CXR and labs; D/C oral diet and make NPO if any signs of aspiration or a decline in mental or respiratory status
Referrals:
Heber Kowalski MD [Family Provider] - in one to two days (Recheck CBC, CMP, Magnesium)
Additional Discharge Medication Instructions: Guaifenesin is a new medication.
Prescriptions:
New
guaifenesin 600 mg Tablet Extended Release 12hr
600 mg PO Q12 Qty: 10 0RF
Continued
Xarelto 20 MG tablet
20 mg PO DAILY
metoprolol succinate 25 mg tablet extended release 24 hr
25 mg PO DAILY
acetaminophen [Tylenol] 325 mg Tablet
650 mg PO BIDPRN PRN (Reason: mild pain)
trazodone 50 mg Tablet
50 mg PO HS PRN (Reason: sleep)
ascorbic acid (vitamin C) [Vitamin C] 500 mg Tablet
500 mg PO DAILY
Patient Comments:
12/09/2023, [facility].
Lagevrio (EUA) 200 mg capsule
800 mg PO Q12H
Patient Comments:
12/09/2023, filled on 12/08/2023 and instructed to take 4 capsules Q12H for 5 days.
cholecalciferol (vitamin D3)
1 tab PO DAILY
Patient Comments:
12/09/2023, [facility]; spouse believes that pt. is taking '200 mg' but is unsure of the dose for certain.
cyanocobalamin (vitamin B-12)
1 tab PO DAILY
Patient Comments:
12/09/2023, [facility].
zinc
1 tab PO DAILY
Patient Comments:
12/09/2023, [facility].
Discharge Orders:
Discharge Patient (As Directed); Ordered 12/11/23
Ordered By: Tone Ramírez
Discharge Date and Time
Discharge Date/Time: 12/11/23 16:32
Print Language: TURKISH
== END 2023-12-11 16:32 | disposition home health service (06) | DRG 177 ==
LOC: 2 NORTH 17:22
PROVIDERS: Hospitalist; ADMITTING PHYSICIAN Internal Medicine; ATTENDING PHYSICIAN Hospitalist; CONSULT PHYSICIAN Internal Medicine Critical Care Medicine; EMERGENCY PHYSICIAN Emergency Medicine; FAMILY PHYSICIAN Family Medicine
DX: U07.1 COVID-19 (principal); J12.82 Pneumonia due to coronavirus disease 2019; I48.19 Other persistent atrial fibrillation; I10 Essential (primary) hypertension; F01.50 Vascular dementia, unspecified severity, without behavioral disturbance, psychotic disturbance, mood disturbance, and anxiety; G30.9 Alzheimer's disease, unspecified; F02.80 Dementia in other diseases classified elsewhere, unspecified severity, without behavioral disturbance, psychotic disturbance, mood disturbance, and anxiety; K21.9 Gastro-esophageal reflux disease without esophagitis; Z79.01 Long term (current) use of anticoagulants
CPT/HCPCS: 71045; 80048; 80053; 84145; 85025; 85027; 85379; 86140; 87811; 92610; 96360; 96361; 97161; 97166; 97530; 99284

== ENCOUNTER → 2023-12-13 14:29 | Outpatient (REF) | payer MEDICARE, OTHER, SELFPAY ==
[2023-12-13 17:27] LABS: Blood Urea Nitrogen 25 mg/dl (9-20); Calcium 8.8 mg/dl (8.4-10.2); Carbon Dioxide 24 mmol/L (22-30); Chloride 106 mmol/L (98-107); Glucose 123 mg/dl (70-99); Potassium 3.6 mmol/L (3.5-5.1); Sodium 138 mmol/L (135-145); eGFR > 60.00
[2023-12-14 08:27] LABS: % Basophils 0.1 % (0-2); % Eosinophils 0.3 % (0-6); % Immature Granulocytes 0.1 % (0-0.5); % Lymphocytes 26.8 % (20.5-51.1); % Monocytes 8.3 % (1.7-9.3); % Neutrophils 64.4 % (42.2-75.2); Absolute Monocytes 0.6 10^3/uL (0.1-0.6); Absolute Neutrophils 4.7 10^3/uL (1.4-6.5); Hematocrit 38.8 % (39.0-52.0); Hemoglobin 12.1 g/dL (13.0-18.0); Mean Corp Hgb Conc. 31.2 g/dL (33.0-37.0); Mean Corpuscular Hgb 31.3 pg (27.0-31.0); Mean Corpuscular Volume 100.3 fL (80.0-94.0); Mean Platelet Volume 12.8 fL (7.4-10.4); Nucleated Red Blood Cells % 0 % (-); Platelet Count 126 10^3/uL (130-400); Red Blood Cell Count 3.87 10^6/uL (4.70-6.10); Red Cell Dist. Width 14.6 % (11.5-14.5); White Blood Cell Count 7.3 10^3/uL (4.8-10.8)
== END ==
LOC: OLAB 14:29
PROVIDERS: ATTENDING PHYSICIAN Family Medicine
DX: J12.89 Other viral pneumonia (principal)
CPT/HCPCS: 80048; 83735; 85025